=== PATIENT | female | born 1990 | race Asian ===

== ENCOUNTER 2024-04-01 08:58 | Outpatient (REF) | payer OTHER, SELFPAY ==
--- NOTE | ~2024-04-01 | US_ITS ---
EXAMINATION: US PELVIS, TRANSABDOMINAL AND TRANSVAGINAL CLINICAL INFORMATION: Irregular bleeding for 2 weeks. COMPARISON: None available. TECHNIQUE: Ultrasound of the pelvis is performed using both transabdominal and transvaginal transducers along with Doppler. Transvaginal imaging is performed due to inadequate visualization transabdominally. FINDINGS: UTERUS: The uterus is retroverted and measures 6.7 x 4.0 x 4.8 cm. The double wall endometrial thickness is 7.4 mm. The uterus is smooth in contour and has normal myometrial echogenicity. No visible fibroid. ADNEXA: Both ovaries are visualized. There is normal color flow to the adnexa. There is no ovarian torsion. There is a small to moderate amount of free fluid in the cul-de-sac. Right ovary measures 3.6 x 1.7 x 1.7 cm for a volume of 8.0 mL. Left ovary measures 3.7 x 2.1 x 2.6 cm for a volume of 10.2 mL. US/US pelvic and transvaginal IMPRESSION: Small to moderate amount of free fluid in the cul-de-sac. No other abnormality is seen. Electronically signed by: Denver Ritter MD 04/02/2024 12:37 AM EDT
== END 2024-04-01 08:59 | disposition home or self-care (01) ==
LOC: HO.UMASIMG 08:58
PROVIDERS: Visit Provider Nurse Practitioner Women's Health
DX: N92.6 Irregular menstruation, unspecified (principal)
CPT/HCPCS: 76830; 76856